=== PATIENT | male | born 1965 | race Caucasian/White ===

== ENCOUNTER 2018-09-23 03:45 | Emergency (ER) | payer MEDICAID ==
[~2018-09-23] VITALS: Ht 182.9 cm; Wt 63.0 kg
[2018-09-23 03:51] VITALS: BP 144/99
== END 2018-09-23 05:28 | disposition home or self-care (01) ==
LOC: ED 05:13
DX: L50.0 Allergic urticaria (principal); L24.2 Irritant contact dermatitis due to solvents; F17.200 Nicotine dependence, unspecified, uncomplicated
CPT/HCPCS: 99284; J7512; Q0163

== ENCOUNTER 2019-05-11 08:45 | Emergency (ER) | payer MEDICAID ==
[~2019-05-11] VITALS: Ht 182.9 cm; Wt 67.5 kg
[2019-05-11 09:05] VITALS: BP 139/90
== END 2019-05-11 10:45 | disposition home or self-care (01) ==
LOC: ED 10:40
DX: L20.84 Intrinsic (allergic) eczema (principal); Z76.0 Encounter for issue of repeat prescription; F17.210 Nicotine dependence, cigarettes, uncomplicated
CPT/HCPCS: 99281

== ENCOUNTER 2019-09-13 03:57 | Emergency (ER) | payer MEDICAID ==
[~2019-09-13] VITALS: Ht 185.4 cm; Wt 65.0 kg
[2019-09-13 03:59] VITALS: BP 145/86
--- NOTE | 2019-09-13 05:17 | NUR ---
Patient/Caregiver given discharge instructions and they have confirmed that they understand the instructions. Patient ambulatory with steady gait.
== END 2019-09-13 05:19 | disposition home or self-care (01) ==
LOC: ED 04:35
DX: L20.84 Intrinsic (allergic) eczema (principal)
CPT/HCPCS: 99283